=== PATIENT | male | born 1995 | race Two or more races ===

== ENCOUNTER 2025-03-12 05:55 | Day surgery (SDC) | payer BC, MEDICAID, SELFPAY ==
[2025-03-11 11:53] VITALS: BMI 25.0
[2025-03-11 13:13] LABS: Basophils # (Auto) 0.0 Thou/mm3 (0.0-0.2); Basophils % (Auto) 0 % (0-2.5); Eosinophils # (Auto) 0.1 Thou/mm3 (0.0-0.5); Eosinophils % (Auto) 1 % (0-10); Hematocrit 44.2 % (41.0-53.0); Hemoglobin 15.5 g/dL (13.5-16.0); Immature Granulocytes Auto 0.01 Thou/mm3 (0.00-0.00); Lymphocytes # (Auto) 1.4 Thou/mm3 (1.0-4.8); Lymphocytes % (Auto) 27 % (10-50); Mean Corpuscular HGB Conc 35.1 g/dl (31.0-37.0); Mean Corpuscular Hemoglobin 29.6 pg (25.0-35.0); Mean Corpuscular Volume 85 fL (80-100); Monocytes # (Auto) 0.4 Thou/mm3 (0.0-0.8); Monocytes % (Auto) 8 % (0-12); Neutrophils # (Auto) 3.3 Thou/mm3 (1.8-7.7); Neutrophils % (Auto) 64 % (37-80); Nucleated Red Blood Cell # 0.00 Thou/mm3 (0.00-0.00); Nucleated Red Blood Cell % 0 /100 WBC (0); Platelet Count 256 Thou/mm3 (140-440); RDW Standard Deviation 38.5 fL (35.1-43.9); Red Blood Count 5.23 Miln/mm3 (4.50-5.90); White Blood Count 5.1 Thou/mm3 (3.8-10.6)
[2025-03-11 13:20] LABS: INR 1.0 (0.9-1.3); Partial Thromboplastin Time 26.1 Seconds (22.0-36.0); Prothrombin Time 10.8 Seconds (9.0-12.2)
--- NOTE | 2025-03-11 13:28 | ESHP_ITS ---
RE: KERRY ARREDONDO : 1995 DATE OF ADMISSION: 03/11/2025 The patient came to my office on 03/11/2025 for detailed preop history and physical examination. HISTORY OF PRESENTING COMPLAINT: The patient has got a history of pain, swelling, clicking, and locking of the left knee joint. The patient injured his left knee joint some time back. The intensity of pain is 8-9/10. It swells and locks. Interferes with routine daily activities and quality of life is affected. MRI scan confirmed torn meniscus. The patient wants something to be done about it. PAST MEDICAL HISTORY: No history of diabetes mellitus, high blood pressure, asthma, seizure, chest pain, myocardial infarction, or bleeding disorder. PAST SURGICAL HISTORY: None. DRUG HISTORY: The patient is on: 1. Cyclobenzaprine. 2. Vitamin D2. 3. Meloxicam. ALLERGIES: NONE KNOWN. FAMILY HISTORY AND SOCIAL HISTORY: The patient denies smoking, drinking, and is employed full-time. PHYSICAL EXAMINATION: GENERAL: Normal built person. VITAL SIGNS: Pulse 74 per minute. Blood pressure is 132/98. NECK: Soft, supple. No masses felt. Trachea is centrally placed. CARDIOVASCULAR SYSTEM: First and second heart sounds normal. No murmur heard. RESPIRATORY SYSTEM: Bilateral vesicular breath sounds. CHEST: Clear. ABDOMEN: Soft. No masses felt. Bowel sounds present. EXTREMITIES: Left knee examination revealed mild swelling. There is 1+ tenderness. Active range of motion 0-120 degrees of flexion. The patient felt significant pain. Anupama's test is positive. Drawer test and Isabelle test are negative. Neurovascularly, it is intact. IMAGING: MRI scan confirmed torn meniscus with synovitis and increased joint fluid. ASSESSMENT AND PLAN: Since the patient is asymptomatic, therefore, left knee arthroscopy was discussed and advised. With the help of pictures and diagram, it was explained to him in detail. Risks with anesthesia was explained and that includes, but not limited to reaction to anesthetic agents, cardiac arrest, and rarely, it might be fatal. Risks with operation includes infection and if that happens, the patient may need further surgical procedure. Other risks include delayed healing, wound dehiscence, etc. No guarantee is given regarding outcome of the procedure and/or relief of symptoms. Appropriate lab work was done. Surgery booked for 03/12/2025 at [facility]. DT: 13:01:41 TT: 13:27:00 Ref: [id number] - TID: [id number]
[2025-03-11 13:37] LABS: Anion Gap 10 (7-16); BUN/Creatinine Ratio 11 Ratio (12-20); Blood Urea Nitrogen 9 mg/dL (9-23); Calcium 10.0 mg/dL (8.3-10.6); Carbon Dioxide 26.8 mMol/L (20.0-31.0); Chloride 105 mMol/L (98-107); Creatinine (Component) 0.8 mg/dL (0.6-1.3); Estimated Creatinine Clearance 125.1 mL/min (>60); Glucose 96 mg/dL (74-106); Osmolality,Calculated 281 (275-295); Potassium 4.5 mMol/L (3.4-5.1); Sodium 142 mMol/L (136-145); eGFR > 60 See Note
--- NOTE | 2025-03-11 14:39 | SUR.PREOP ---
Pt notified to come in tomorrow at 0545.
[2025-03-12] VITALS (8 sets, daily range): BP systolic 133–165; BP diastolic 75–122; PULSE 70–100; RESP 12–19; TEMP 36.3–36.9; O2SAT 92–99; BMI 23.5
[2025-03-12] MEDS: RINGERS LACTATED 1000 ML 1,000 ML 20 ML IV (06:27)
--- NOTE | 2025-03-12 08:32 | ESOP_ITS ---
Date of Procedure 03/12/25 Pre Op Diagnosis 1. Torn medial meniscus left knee joint 2. Torn lateral meniscus 3. Morning History of DJD 4.. Synovitis with medial plica Procedure 1. Partial medial meniscectomy 2 partial lateral meniscectomy 3 chondroplasty 4. Partial synovectomy including excision plica Findings Refer dictation Procedure Description The patient was given general endotracheal anesthesia. Once satisfactory anesthesia was achieved, tourniquet was placed on left upper thigh. Following that the part was thoroughly prepped and draped. After using Esmarch the t ourniquet pressure was raised to 350 mmHg. A skin incision was made proximal to lateral tibial plateau and arthroscope was introduced in the usual fashion. Another a skin incision was made in suprap atellar pouch area and outlet was established. The findings were noted as below. In suprapatellar pouch area significant synovial tissue inflammation was present. Medial plica was present as well. The undersurface of patella showed grade 2/3 chondromalacia. The anterior femoral condyle showed grade 3 chondromalacia. Soft tissue impingement was present. The patellar tracking was checked and found to be good. The medial compartment showed grade 2/3 chondromalacia for medial tibial plateau and grade III chondromalacia medial femoral condyle. The medial meniscus showed degeneration and tear of the anterior horn. Another skin incision was made proximal to medial tibial plateau and a probe was introduced and findings were confirmed. The anterior cruciate ligament was intact. The anterior drawer test was performed and found to be good. With the help of probe the integrity of ACL was tested and found to be good The lateral compartment showed grade II chondromalacia of lateral femoral condyle and tibial plateau. Lateral meniscus showed degeneration and tear of the body and anterior horn. A shaver was introduced and shaving of the anterior horn of medial meniscus was performed. Soft tissue impingement was shaved off. Chondroplasty of the medial femoral condyle. Basket was introduced and torn part of the junction of the body and the anterior horn of lateral meniscus was excised. The shaving of the body and anterior horn of lateral meniscus was done. The chondroplasty of the anterior femoral condyle was performed. The soft tissue impingement was shaved off. A partial synovectomy including excision of plica was performed. Copious amount of irrigation was used to irrigate the knee joint. All the debris were removed. 3-0 Prolene was used to close the wound. About 20 mL of quarter percent Marcaine along with 10 mg of Duramorph was injected. Patient tolerated procedure well. Estimated blood loss was about 1 mL. Prognosis in this case is fair to good. Patient was taken to the recovery room in good condition. Anesthesia GETA and other Pathology / specimen None Estimated Blood Loss 1 Surgeon Anupam Everett MD Surgical Staff Operation Date: 03/12/25 07:30 Case Staff Anesthesiologist: Ajit Rao
--- NOTE | 2025-03-12 08:40 | SUR.PHASEI ---
0840: Pt. AAOx4, pt. hypertensive possible d/t pain, no complaint of nausea, dressing to left knee CDI, no active bleed noted, bilateral dorsalis pedis pulses strong and regular, cap refill to bilateral feet less than 3 seconds, pt. able to move bilateral legs, report received from Aaron BOLAÑOS and Matt ADORNO.
[2025-03-12] MEDS: fentaNYL CIT INJ 50 mCg/ML AMP 2ML 25 MCG IVP ×5 (08:51→09:20)
--- NOTE | 2025-03-12 09:45 | SUR.PHASEII ---
0945: Pt. AAOx4, vitals stable breathing unlabored, no complaint of pain or nausea, dressing to left knee CDI, bilateral dorsalis pedis pulses strong and regular, cap refill to bilateral feet less than 3 seconds, pt. able to move legs, pt. tolerated sips of water well, pt. ambulated to wheelchair with steady gait and no assist, no comlications. Gave discharge instructions to the pt. and his ride, both verbalized understanding and had no further questions. Pt. left with all personal belongings.
== END 2025-03-12 09:45 | disposition home or self-care (01) ==
PROVIDERS: Referring Provider Orthopaedic Surgery; Visit Provider Orthopaedic Surgery
PROC: (CPT 29870; principal; 2025-03-12 07:30)
DX: S83.242A Other tear of medial meniscus, current injury, left knee, initial encounter (principal); S83.289A Other tear of lateral meniscus, current injury, unspecified knee, initial encounter; X58.XXXA Exposure to other specified factors, initial encounter; M17.12 Unilateral primary osteoarthritis, left knee; M65.862 Other synovitis and tenosynovitis, left lower leg; M67.52 Plica syndrome, left knee; M22.42 Chondromalacia patellae, left knee; M26.81 Anterior soft tissue impingement
CPT/HCPCS: 29880; 36415; 80048; 85025; 85610; 85730; A4217; A4649; J0131; J0690; J1100; J1885; J2250; J2405; J2704; J3010; J3490; J7120; A9270; J1805

== ENCOUNTER 2025-06-11 10:30 | Day surgery (SDC) | payer BC, MEDICAID, SELFPAY ==
[2025-06-10 13:21] VITALS: BMI 24.8
[2025-06-10 16:06] LABS: INR 1.0 (0.9-1.3); Partial Thromboplastin Time 27.3 Seconds (22.0-36.0); Prothrombin Time 10.4 Seconds (9.0-12.2)
[2025-06-10 16:13] LABS: Anion Gap 10 (7-16); BUN/Creatinine Ratio 10 Ratio (12-20); Blood Urea Nitrogen 9 mg/dL (9-23); Calcium 9.8 mg/dL (8.3-10.6); Carbon Dioxide 28.8 mMol/L (20.0-31.0); Chloride 105 mMol/L (98-107); Creatinine (Component) 0.9 mg/dL (0.6-1.3); Estimated Creatinine Clearance 107.3 mL/min (>60); Glucose 97 mg/dL (74-106); Osmolality,Calculated 285 (275-295); Potassium 4.1 mMol/L (3.4-5.1); Sodium 144 mMol/L (136-145); eGFR > 60 See Note
[2025-06-10 16:17] LABS: Basophils # (Auto) 0.0 Thou/mm3 (0.0-0.2); Basophils % (Auto) 1 % (0-2.5); Eosinophils # (Auto) 0.1 Thou/mm3 (0.0-0.5); Eosinophils % (Auto) 1 % (0-10); Hematocrit 45.9 % (41.0-53.0); Hemoglobin 16.0 g/dL (13.5-16.0); Immature Granulocytes Auto 0.02 Thou/mm3 (0.00-0.00); Lymphocytes # (Auto) 1.5 Thou/mm3 (1.0-4.8); Lymphocytes % (Auto) 23 % (10-50); Mean Corpuscular HGB Conc 34.9 g/dl (31.0-37.0); Mean Corpuscular Hemoglobin 30.2 pg (25.0-35.0); Mean Corpuscular Volume 87 fL (80-100); Monocytes # (Auto) 0.5 Thou/mm3 (0.0-0.8); Monocytes % (Auto) 8 % (0-12); Neutrophils # (Auto) 4.3 Thou/mm3 (1.8-7.7); Neutrophils % (Auto) 68 % (37-80); Nucleated Red Blood Cell # 0.00 Thou/mm3 (0.00-0.00); Nucleated Red Blood Cell % 0 /100 WBC (0); Platelet Count 235 Thou/mm3 (140-440); RDW Standard Deviation 38.6 fL (35.1-43.9); Red Blood Count 5.29 Miln/mm3 (4.50-5.90); White Blood Count 6.3 Thou/mm3 (3.8-10.6)
[2025-06-11] VITALS (8 sets, daily range): BP systolic 144–155; BP diastolic 79–118; PULSE 73–103; RESP 12–17; TEMP 36.1–36.5; O2SAT 95–100; BMI 23.8
--- NOTE | 2025-06-11 10:51 | SUR.PREOP ---
Patient expressed gratitude for prayer before their procedure.
--- NOTE | 2025-06-11 13:44 | SUR.PHASEI ---
1344: Pt. AAOx4, vitals stable, breathing unlabored, no complaint of pain or nausea, dressing to right knee CDI, no active bleed noted, bilateral dorsalis pedis pulses strong and regular, cap refill to bilateral feet less than 3 seconds, report received from Yady ADORNO and MD García.
--- NOTE | 2025-06-11 13:44 | PD.SUROPNT ---
Date of Procedure 06/11/25 Pre Op Diagnosis 1. 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 Degeneration and tear of the lateral meniscus 3 DJD 4. Synovitis with medial plica Post Op Diagnosis Same Procedure 1. Partial medial meniscectomy 2. Partial lateral meniscectomy 3. Chondroplasty 4 partial synovectomy including excision plica Findings Refer dictation Procedure Description The patient was given general endotracheal anesthesia. Once satisfactory anesthesia was achieved, tourniquet was placed on right upper thigh. Following that the part was thoroughly prepped and draped. After using Esmarch the tourniquet pressure was raised to 350 mmHg. A skin incision was made proximal to lateral tibial plateau and arthroscope was introduced in the usual fashion. Another a skin incision was made in suprapatellar pouch area and outlet was established. The findings were noted as below. In suprapatellar pouch area significant synovial tissue inflammation was present. Medial plica was present as well. The undersurface of patella showed grade 3 chondromalacia. The anterior femoral condyle showed grade 3 chondromalacia. Soft tissue impingement was present. The patellar tracking was checked and found to be good. The medial compartment showed grade 2/3 chondromalacia for medial tibial plateau and medial femoral condyle. The medial meniscus showed degeneration and tear of the anterior horn. Another skin incision was made proximal to medial tibial plateau and a probe was introduced and findings were confirmed. The anterior cruciate ligament was intact. The anterior drawer test was performed and found to be good. With the help of probe the integrity was tested and found to be good. The lateral compartment showed intact lateral femoral condyle and tibial plateau. Lateral meniscus showed degeneration anterior of the body and anterior horn. A shaver was introduced and shaving of the anterior horn of medial meniscus was performed. Soft tissue impingement was shaved off. The shaving of the body and anterior horn of lateral meniscus was done. The chondroplasty of the patella and and anterior femoral condyle was performed. The soft tissue impingement was shaved off. A partial synovectomy including excision of plica was performed. Copious amount of irrigation was used to irrigate the knee joint. All the debris were removed. 3-0 Prolene was used to close the wound. About 20 mL of quarter percent Marcaine along with 10 mg of Duramorph was injected. Patient tolerated procedure well. Estimated blood loss was about 5 mL. Prognosis in this case is fair to good. Patient was taken to the recovery room in good condition. Anesthesia GETA Pathology / specimen None Estimated Blood Loss 2 Surgeon Anupam Everett MD Surgical Staff Operation Date: 06/11/25 12:30 Case Staff Anesthesiologist: Merrick García
[2025-06-11] MEDS: fentaNYL CIT INJ 50 mCg/ML AMP 2ML IVP (13:51)
[2025-06-11] MEDS: ACETAMINOPHEN INJ 1,000 MG/100 ML VIAL 1000 MG IV (13:53)
[2025-06-11] MEDS: ONDANSETRON INJ 2 MG/ML INJ 2 ML 4 MG IVP (13:59)
[2025-06-11] MEDS: PROMETHAZINE INJ 12.5 MG in SODIUM CHLORIDE 0.9% 50 ML 2.5 MG IV (14:26)
--- NOTE | 2025-06-11 14:33 | ESHP_ITS ---
RE: KERRY ARREDONDO : 1995 DATE OF ADMISSION: 06/11/2025 Patient came to my office on 06/10/2025 for detailed preop history and physical examination. HISTORY OF PRESENTING COMPLAINT: Patient has a history of pain, swelling, clicking, and locking of the right knee joint. The intensity of pain is graded 7-8 out of 10. At the end of the day it swells, affecting quality of life and active daily living. Sometime it interferes with the sleep. Unable to walk more than 1-2 block. PAST MEDICAL HISTORY: No history of diabetes mellitus, high blood pressure, asthma, seizure, chest pain, myocardial infarction, bleeding disorder. PAST SURGICAL HISTORY: Left knee arthroscopy in recent past. DRUG HISTORY: Nil. ALLERGIES: NIL KNOWN. FAMILY HISTORY AND SOCIAL HISTORY: Patient denies smoking. Presently disabled. PHYSICAL EXAMINATION: GENERAL: Normal built person. VITAL SIGNS: Pulse 78 per minute, blood pressure 136/84. NECK: Soft, supple, no mass felt, trachea is centrally placed. CARDIOVASCULAR: First and second heart sound normal. No murmur heard. RESPIRATORY: Bilateral vesicular breath sounds. Chest clear. Right knee examination revealed mild swelling. There is mild to moderate tenderness. Active range of motion 0 to 115 degrees of flexion. Crepitus is present. Anupama's test is positive. Drawer test, Isabelle test were negative. MRI scan confirm degeneration of the medial meniscus and lateral meniscus. It also showed DJD and synovitis with the increased joint fluid. Since patient symptomatic and interfering with routine daily activities, therefore a right knee arthroscopy was discussed and advised. Risk with anesthesia was explained and that includes but not limited to reaction to anesthetic agents, cardiac arrest or rarely it might be fatal. Risk with operation includes infection and if that happens patient may need further surgical procedure. There is a risk of deep venous thrombosis and pulmonary embolism, which rarely might be fatal. No guarantee is given regarding outcome of the procedure and or relief of symptoms. All appropriate lab work is done. Accordingly surgery is booked for 06/11/2025. Appropriate lab work is done. DT: 13:50:28 TT: 14:32:00 Ref: [id number] - TID: [id number]
--- NOTE | 2025-06-11 14:55 | SUR.PHASEII ---
1455: Pt. AAOx4, vitals stable, breathing unlabored, no complaint of pain or nausea, dressing to right knee CDI, no active bleed noted, bilateral dorsalis pedis pulses strong and regular, cap refill to bilateral feet less than 3 seconds, pt. tolerated sips of water well, pt. ambulated to wheelchair with steady gait and no assist, no complications. Gave discharge instructions to the pt. and his ride, both verbalized understanding and had no further questions. Pt. left with all personal belongings.
== END 2025-06-11 14:55 | disposition home or self-care (01) ==
PROVIDERS: PCP Family Medicine; Referring Provider Orthopaedic Surgery; Visit Provider Orthopaedic Surgery
PROC: (CPT 29870; principal; 2025-06-11 12:15)
DX: S83.241A Other tear of medial meniscus, current injury, right knee, initial encounter (principal); M23.341 Other meniscus derangements, anterior horn of lateral meniscus, right knee; M17.11 Unilateral primary osteoarthritis, right knee; M67.51 Plica syndrome, right knee; M65.861 Other synovitis and tenosynovitis, right lower leg; M26.81 Anterior soft tissue impingement; M22.41 Chondromalacia patellae, right knee
CPT/HCPCS: 29880; 36415; 80048; 85025; 85610; 85730; A4217; A4649; J0131; J0690; J1100; J1171; J2270; J2405; J2550; J2704; J2765; J3010; J3490; J0665